=== PATIENT | female | born 1960 | race Two or more races ===

== ENCOUNTER 2023-08-06 16:03 | Outpatient (REF) | payer OTHER, SELFPAY ==
[2023-08-06 19:55] LABS: Erythrocyte Sedimentation Rate 10 MM/HR (0-20)
[2023-08-15 11:33] LABS: Acetylcholine Recep Modulating <1
[2023-08-25 15:59] LABS: Acetylcholine Receptor Binding <0.30 nmol/L
[2023-08-30 18:23] LABS: Acetylcholine Recept. Blocking <15 (<15)
== END 2023-08-06 16:04 | disposition home or self-care (01) ==
LOC: HO.LAB 16:03
PROVIDERS: PCP Internal Medicine; Visit Provider Psychiatry & Neurology Neurology
DX: G43.109 Migraine with aura, not intractable, without status migrainosus (principal); H02.409 Unspecified ptosis of unspecified eyelid
CPT/HCPCS: 36415; 85652; 86041; 86042; 86043